=== PATIENT | female | born 1995 | race African-American/Black ===

== ENCOUNTER 2017-11-16 11:56 | Emergency (ER) | payer MEDICAID ==
[~2017-11-16] VITALS: Ht 172.7 cm; Wt 100.0 kg
[2017-11-16] MEDS ORDERED: ONDANSETRON HCL 4MG/2ML VIAL IV STA ×2 (12:33→14:56)
[2017-11-16] MEDS ORDERED: SODIUM CHLORIDE 0.9% 1,000 ML IV ONE ×2 (12:33→14:56)
[2017-11-16 13:00] LABS: BASOPHILS % 0.3 % (0.0-2.0); EOSINOPHILS % 0.2 % (0.0-5.0); HEMATOCRIT. 38.6 % (36.0-48.0); HEMOGLOBIN. 12.5 g/dL (12.0-16.0); LYMPHOCYTES % 11.9 % (20.0-50.0); MEAN CORPUSCULAR VOLUME 86.3 fL (81.0-99.0); MEAN PLATELET VOLUME 7.6 fl (7.4-10.4); MONOCYTES % 4.9 % (2.0-8.0); NEUTROPHILS % 82.7 % (40.0-76.0); PLATELET 275 x1000/uL (130-400); RED BLOOD CELL COUNT 4.47 mill/uL (4.2-5.4); RED CELL DISTRIBUTION WIDTH 14.2 % (11.6-14.6)
[2017-11-16 13:06] LABS: CHLORIDE 107 mEq/L (98-107)
[2017-11-16 13:07] LABS: INR 1.1; PROTHROMBIN TIME 11.4 sec (9.4-11.6)
[2017-11-16] MEDS ORDERED: FAMOTIDINE 20MG/2ML VIAL IV ONE (15:00)
[2017-11-16] MEDS ORDERED: VISCOUS LIDOCAINE 2% 15 ML UDC PO STA (16:42)
[2017-11-16] MEDS ORDERED: MAGNESIUM/ALUMINUM HYDROXIDE/SIMETHICONE 30ML UDC PO STA (16:42)
[2017-11-16 18:46] VITALS: BP 106/70
== END 2017-11-16 18:48 | disposition home or self-care (01) ==
LOC: ER 11:56
DX: K29.20 Alcoholic gastritis without bleeding (principal); F10.10 Alcohol abuse, uncomplicated; E11.9 Type 2 diabetes mellitus without complications; F17.200 Nicotine dependence, unspecified, uncomplicated; F12.10 Cannabis abuse, uncomplicated; Y90.9 Presence of alcohol in blood, level not specified; R03.0 Elevated blood-pressure reading, without diagnosis of hypertension; Z90.49 Acquired absence of other specified parts of digestive tract
CPT/HCPCS: 36415; 80053; 83690; 85025; 85610; 96361; 96374; 96375; 96376; 99284; J2405; J3490; J7030